=== PATIENT | female | born 1975 | race African-American/Black ===

== ENCOUNTER 2022-02-04 16:00 | Inpatient (IN) | payer OTHER ==
[~2022-02-04] VITALS: Ht 165.1 cm; Wt 88.0 kg
[2022-02-04 16:00] VITALS: BP 132/87
[2022-02-04] MEDS ORDERED: LABE200T5 PO (17:13)
[2022-02-04] MEDS ORDERED: CLON0.3P TD (17:13)
[2022-02-04] MEDS ORDERED: HYDR-3972 PO (17:13)
[2022-02-04] MEDS ORDERED: SEVE800T7 PO (17:13)
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
--- NOTE | 2022-02-04 18:47 | NUR ---
Patient attends to [facility]: [address] [facility] [address], tel. Per patient she is fully vaccinated Covid-19, flu vaccine and PNA vaccine, recd all these vaccines at above dialysis location.
[2022-02-04] MEDS ORDERED: CLONIDINE-TTS 3 PATCH TD SCH (20:30)
[2022-02-04] MEDS ORDERED: ALBUTEROL SULFATE 2.5 MG/3 ML NEBU NEB PRN (20:30)
[2022-02-04] MEDS ORDERED: ACETAMINOPHEN 325 MG TABLET PO PRN (20:30)
[2022-02-04] MEDS ORDERED: ONDANSETRON 4 MG/2 ML VIAL IV PRN (20:30)
[2022-02-04] MEDS ORDERED: DOCUSATE SODIUM 250 MG CAPSULE PO SCH (21:00)
[2022-02-04 21:12] VITALS: BP 128/87
[2022-02-04] MEDS: TEMAZEPAM 15 MG CAPSULE PO PRN (23:22)
[2022-02-04] MEDS: HYDROCODONE/APAP 5-325MG TABLET PO PRN (23:23)
--- NOTE | 2022-02-05 00:30 | NUR ---
Patient had a junctional rhythm at 0027 and 0029. Patient awaken and in no acute distress. VS 98.7,78,18,144/99. o2 saturation 100% on room air.
[2022-02-05 00:45] VITALS: BP 133/84
[2022-02-05] MEDS ORDERED: LABETALOL HCL 200 MG TABLET PO SCH ×3 (05:15→17:00)
[2022-02-05] MEDS ORDERED: LABETALOL HCL 100 MG TABLET ONE (05:41)
[2022-02-05] MEDS: PANTOPRAZOLE SODIUM 40 MG TABLET.DR PO SCH (06:05)
[2022-02-05 07:31] LABS: IRON, SERUM 115 ug/dL (50-175)
[2022-02-05 07:33] LABS: ALANINE AMINOTRANSFERASE 22 U/L (14-59); ALKALINE PHOSPHATASE 252 U/L (50-136); ASPARTATE AMINOTRANSFERASE 16 U/L (15-37); BILIRUBIN,TOTAL 0.7 mg/dL (0.2-1.0); CARBON DIOXIDE 28 mmol/L (21-32); CHLORIDE 100 mmol/L (98-107); CHOLESTEROL 136 mg/dL (<200); GLUCOSE 105 mg/dL (74-106); HDL CHOLESTEROL 41 mg/dL (40-60); MAGNESIUM 1.9 mg/dL (1.8-2.4); POTASSIUM 5.1 mmol/L (3.5-5.1); TOTAL PROTEIN, SERUM 7.5 g/dL (6.4-8.2); TRIGLYCERIDES 81 MG/DL (30-150)
[2022-02-05 07:41] LABS: HEMATOCRIT 26.2 % (31.2-41.9); MEAN CORPUSCULAR HEMOGLOBIN 23.5 uug (24.7-32.8); MEAN CORPUSCULAR VOLUME 71.5 fL (75.5-95.3); PLATELET COUNT (AUTO) 142 K/uL (179-408)
[2022-02-05] MEDS ORDERED: CLONIDINE-TTS 3 PATCH TD SCH (08:00)
[2022-02-05 08:31] LABS: CREATININE 7.6 mg/dL (0.6-1.3); PHOSPHOROUS 8.4 mg/dL (2.5-4.9); UREA NITROGEN, BLOOD 89 mg/dL (7-18)
[2022-02-05] MEDS: SEVELAMER CARBONATE 800 MG TABLET PO SCH ×3 (08:56→16:37)
[2022-02-05 12:00] VITALS: BP 170/101
[2022-02-05] MEDS ORDERED: LABETALOL HCL 200 MG TABLET PO ONE (12:30)
[2022-02-05 13:07] LABS: ABG BASE EXCESS -2.1 mmol/L; ABG HCO3 21.7 mmol/L; ABG PCO2 33.2 mmHg (35.0-45.0); ABG PH 7.434 (7.350-7.450); ABG PO2 85.9 mmHg (75.0-100.0); ABG SITE LEFT RADIAL; ABG TOTAL HEMOGLOBIN 9.1 G/dL (12.0-16.0); COHb 1.2 % (0.5-1.5); MetHb 0.2 % (0.0-1.5); O2Hb 94.5 % (94.0-97.0); VENT MODE room air
[2022-02-05] MEDS: hydrALAZINE HCL 25 MG TABLET PO SCH ×2 (15:14→21:06)
[2022-02-05] MEDS: HYDROCODONE/APAP 5-325MG TABLET PO PRN ×5 (15:15→21:08)
[2022-02-05 17:25] VITALS: BP 152/93
--- NOTE | 2022-02-05 18:25 | NUR ---
Pt. has been monitored through out the shift. No acute distress noted. C/O generalized pain and [place] given and was effective. corporative with the care given. Pt. positive for MRSA swab and notified Dr. Sullivan and received order for Bactroban.
[2022-02-05 20:00] VITALS: BP 133/83
[2022-02-05] MEDS ORDERED: DOCUSATE SODIUM 100 MG CAPSULE PO SCH (21:00)
[2022-02-05] MEDS: MUPIROCIN 2% OINT 22 GM TUBE NS SCH (21:05)
[2022-02-05] MEDS: TEMAZEPAM 15 MG CAPSULE PO PRN (21:07)
[2022-02-06] VITALS (8 sets, daily range): BP systolic 146–183; BP diastolic 83–118
[2022-02-06] MEDS ORDERED: diphenhydrAMINE 25 MG CAP PO PRN
[2022-02-06] MEDS: MORPHINE SULFATE 2 MG/1 ML DISP.SYRIN IV PRN ×2 (02:20→10:28)
[2022-02-06] MEDS ORDERED: diphenhydrAMINE 50 MG/1 ML VIAL IV PRN (04:30)
[2022-02-06] MEDS: hydrALAZINE HCL 25 MG TABLET PO SCH ×2 (06:40→13:54)
[2022-02-06] MEDS: PANTOPRAZOLE SODIUM 40 MG TABLET.DR PO SCH (06:46)
[2022-02-06] MEDS: MUPIROCIN 2% OINT 22 GM TUBE NS SCH (08:24)
[2022-02-06] MEDS: SEVELAMER CARBONATE 800 MG TABLET PO SCH ×3 (08:24→16:45)
[2022-02-06 10:25] LABS: HEMATOCRIT 27.9 % (31.2-41.9); MEAN CORPUSCULAR HEMOGLOBIN 22.6 uug (24.7-32.8); MEAN CORPUSCULAR VOLUME 72.1 fL (75.5-95.3); PLATELET COUNT (AUTO) 149 K/uL (179-408)
--- NOTE | 2022-02-06 10:32 | NUR ---
c/o cramping pain on left armp- medicated with morphine 2mg iv as prn, awake alert and oriented, SR on tele, explained plan of care- verbalized understanding, call light within reach
[2022-02-06 10:36] LABS: CREATININE 6.4 mg/dL (0.6-1.3); MAGNESIUM 1.9 mg/dL (1.8-2.4); PHOSPHOROUS 6.2 mg/dL (2.5-4.9); POTASSIUM 4.4 mmol/L (3.5-5.1); TOTAL PROTEIN, SERUM 7.6 g/dL (6.4-8.2)
[2022-02-06] MEDS ORDERED: CARVEDILOL 12.5 MG TABLET PO SCH (11:00)
[2022-02-06 12:22] LABS: EOSINOPHILS % (MANUAL) 5 % (0-8); LYMPHOCYTES % (MANUAL) 17 % (20-40); MONOCYTES % (MANUAL) 6 % (2-10); NEUTROPHILS % (MANUAL) 72 % (42-75)
[2022-02-06] MEDS ORDERED: LABETALOL HCL 100 MG TABLET PO ONE (12:30)
[2022-02-06] MEDS ORDERED: LABETALOL HCL 100 MG TABLET PO SCH (12:30)
--- NOTE | 2022-02-06 12:30 | NUR ---
informed Dr Edwards of BP166/103 HR 82- coreg was just given- orders given, pt wants to go home
--- NOTE | 2022-02-06 13:23 | NUR ---
report given to day shift rn for continuation of care- pt in no distress, ambulates in the room without problem, all needs attended and dmet call light within reach
[2022-02-06] MEDS ORDERED: ISOSORBIDE DINITRATE 10 MG TABLET PO SCH (14:00)
[2022-02-06] MEDS ORDERED: FLUT1BLS4 IH (14:19)
[2022-02-06] MEDS ORDERED: HYDR-4077 PO (14:19)
[2022-02-06] MEDS ORDERED: ASPI-618 PO (14:19)
[2022-02-06] MEDS ORDERED: CARV25TA2 PO (14:19)
[2022-02-06] MEDS ORDERED: MUPI22OI2 NS (14:19)
[2022-02-06] MEDS ORDERED: ALBU6.7H9 INH (14:19)
[2022-02-06] MEDS ORDERED: ISOS10TA2 PO (14:19)
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
[2022-02-06] MEDS ORDERED: CLONIDINE HCL 0.1 MG TABLET PO ONE ×2 (14:30→16:15)
--- NOTE | 2022-02-06 15:28 | NUR ---
Social work consult was requested for a patient on [facility] for homeless resources. Patient is 46-year-old Black female admitted to the hospital for renal failure. Patient is alert and oriented X4. Patient presents with depressed mood and congruent affect. 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 Patient states that she currently resides at [facility] [address] [place], [place] [id number] apartment [facility] and has been living there for four years. YASMIN provided the patient resources for local shelters for [facility] [place] [address] [place] [address] ([phone]), [facility] [address] [facility] [address] ([phone]) and [place] [facility] [facility] [address] [facility] [address]. Patient states she did not need the resources. Patient states she has a walker, is not currently driving, and is receiving disability. Patient denies a history of substance abuse and there is no toxicology report. Patient states she has a history of depression and is not seeing a therapist or psychiatrist. YASMIN provided the patient with mental health resource for [facility] [address] [place] [address] ([phone]). Patient denies suicidal or homicidal ideation. Patient states her plan for discharge is to go back to [facility] [id number] [place] [address].
[2022-02-06] MEDS ORDERED: CARVEDILOL 25 MG TABLET PO SCH (17:00)
--- NOTE | 2022-02-06 18:03 | NUR ---
Pt. discharged home and noted to be stable upon the discharge. Warm clothes was offered and pt. refused to take. Tap bus was provided. Discharge instruction given to patient and pt. was insisting to leave and refused the nurse take a picture of her wounds. Blood pressure was checked and noted at 150/89 and HR 80.
[2022-02-07 14:06] LABS: HEPATITIS B SURFACE AG Negative (Negative)
== END 2022-02-06 17:00 | disposition home or self-care (01) | DRG 291 ==
LOC: TELE3 16:00 → MEDSURG3 02-06 11:10
PROVIDERS: ADMIT Internal Medicine; ATTEND Internal Medicine
PROC: 5A1D70Z Performance of Urinary Filtration, Intermittent, Less than 6 Hours Per Day (ICD-10-PCS; principal; 2022-02-06)
DX: I13.2 Hypertensive heart and chronic kidney disease with heart failure and with stage 5 chronic kidney disease, or end stage renal disease (principal); G93.41 Metabolic encephalopathy; N18.6 End stage renal disease; I50.21 Acute systolic (congestive) heart failure; D61.818 Other pancytopenia; R18.8 Other ascites; Z99.2 Dependence on renal dialysis; E83.39 Other disorders of phosphorus metabolism; I27.29 Other secondary pulmonary hypertension; Z20.822 Contact with and (suspected) exposure to COVID-19; I42.9 Cardiomyopathy, unspecified; D63.8 Anemia in other chronic diseases classified elsewhere; I25.10 Atherosclerotic heart disease of native coronary artery without angina pectoris; I25.2 Old myocardial infarction; J44.9 Chronic obstructive pulmonary disease, unspecified; Z87.891 Personal history of nicotine dependence; R77.8 Other specified abnormalities of plasma proteins; R06.03 Acute respiratory distress; I27.20 Pulmonary hypertension, unspecified; I08.1 Rheumatic disorders of both mitral and tricuspid valves; E66.3 Overweight; N25.0 Renal osteodystrophy; K75.9 Inflammatory liver disease, unspecified
CPT/HCPCS: 36415; 36600; 70030-TC; 71045; 83550; 83735; 84100; 84484; 85025; 85610; 86706; 86803; 87340; 90937; 93005; 93307; A6209; G0378; J1200; J2270; Q0163